=== PATIENT | male | born 1955 | race Caucasian/White ===

== ENCOUNTER 2020-06-14 15:40 | Emergency (ER) | payer BC, SELFPAY ==
[2020-06-14 15:43] VITALS: BP 149/96; PULSE 70; RESP 16; TEMP 36.6; O2SAT 99
--- NOTE | 2020-06-14 15:53 | ED.GENADUL_ITS ---
Discharge Plan Disposition Patient Disposition: HOME Condition: Improving Discharge Details Clinical Impression: Laceration of finger of left hand Primary Care Provider: Ray Will ED Provider: Shubham Oro Home Meds and New Rx's Prescriptions: No Action No Known Home Meds RF: 0 Discharge Instructions Instructions: Laceration (ED) Additional Instructions: Return or see Dr. Aguilar for removal of sutures in 7 to 10 days time. Keep wound clean and dry. May wash daily, pat dry and replace dressing. Return sooner if you develop a fever, foul-smelling discharge from the wound, or any other acute concerns. Medical Decision Making 64-year-old male who accidentally cut the volar distal pad of his left ring finger with a vinyl knife while working. No other injury Distal sensation is intact and motor is unaffected. Tetanus updated. Digital block performed, wound liberally irrigated and explored in a bloodless field without evidence of foreign body. Repaired with interrupted suture. Dressed at the bedside. Patient stable for discharge. HPI General Mode of arrival: ambulatory . Date/Time Provider Initiated Documentation: 06/14/20 15:40 . Limitations to Documentation: no limitations . Information obtained by: patient . History of Present Illness 64 year old M presents to the emergency department with the chief complaint of Left ring finger laceration, described as mild, Quality is described as dull, and is localized to the left. Patient reports no radiation. Patient started experiencing this minute(s) and it has been constant. No relieving factors improve symptom(s), No exacerbating factors reported . Patient did receive the following treatments prior to arrival, none Related Data Home Medications Medication Instructions Recorded Confirmed Unknown [No Known Home Meds] 06/14/20 06/14/20 Allergies Allergy/AdvReac Type Severity Reaction Status Date / Time No Known Allergies Allergy Unverified 06/14/20 15:47 General Stated Complaint: Laceration ZACHARY: 4 Review of Systems Narrative: Tetanus out of date [facility] Social History Smoking/Tobacco Use Status: Never Alcohol Intake: current Alcohol Intake frequency: 0-2 drinks per day Alcohol type: beer and wine Substance use type: does not use Exam Narrative Exam Narrative: GEN: awake, alert, oriented 3. Pleasant, well groomed, interactive. HEAD: Normocephalic, atraumatic EYES: PERRL, EOMI NECK: Full ROM, no TORITO, no menigismus CHEST/RESP: No respiratory distress EXT: Full ROM, left ring finger with shallow laceration over volar pad, curvilinear, measures 1.5 cm. Neuro: Grossly normal neurologic exam, conversant, interactive. Psych: Speech fluent, thoughts congruent, affect normal Course Vital Signs Vital signs: Vital Signs Temperature 36.6 C 06/14/20 15:43 Pulse 70 06/14/20 15:43 Respiratory Rate 16 06/14/20 15:43 Blood Pressure 149/96 H 06/14/20 15:43 Pulse Oximetry 99 06/14/20 15:43 Temperature 36.6 C 06/14/20 15:43 Temperature Source Skin 06/14/20 15:43 Pulse 70 06/14/20 15:43 Respiratory Rate 16 06/14/20 15:43 Respiratory Effort Non-Labored 06/14/20 15:43 Blood Pressure 149/96 H 06/14/20 15:43 Blood Pressure Position Sitting 06/14/20 15:43 Pulse Oximetry 99 06/14/20 15:43 Oxygen Delivery Method Room Air 06/14/20 15:43 Oxygen Flow Rate 0 06/14/20 15:43 Pain Level 1 06/14/20 15:43 Procedures Laceration Laceration 1: Site: hand Side (If applicable): left Size (cm): 1.5 Description: flap Depth: simple, single layer Local Anesthetic: Lidocaine 1% Amount of anesthesia used (mL): 2 Pre-repair: wound explored and irrigated extensively Skin layer closed with: nylon Size (cm): 4-0 Technique: simple, interrupted
[2020-06-14] MEDS: Tetanus & Diphtheria Tox,ADULT 0.5 ML VIAL IM (16:15)
== END 2020-06-14 16:34 | disposition home or self-care (01) ==
PROVIDERS: Emergency Provider Emergency Medicine; PCP Internal Medicine
DX: S61.215A Laceration without foreign body of left ring finger without damage to nail, initial encounter (principal); W26.0XXA Contact with knife, initial encounter; Y99.0 Civilian activity done for income or pay
CPT/HCPCS: 12001; 90471

== ENCOUNTER 2020-11-03 10:32 | Outpatient (REF) | payer BC, SELFPAY ==
[2020-11-03 15:26] LABS: Abs Immature Grans 0.02 10^3/uL (0.0-0.06); Absolute Basophil Count 0.05 10^3/uL (0.0-0.2); Absolute Eosinophil Count 0.22 10^3/uL (0.0-0.7); Absolute Lymphocyte Count 1.48 10^3/uL (1.2-3.4); Absolute Monocyte Count 0.48 10^3/uL (0.1-0.8); Absolute Neutrophil Count 2.92 10^3/uL (1.2-6.7); Eosinophils % 4.3; HCT 49.4 % (40.0-50.0); HGB 16.3 g/dL (13.5-17.5); Immature Grans % 0.4; Lymphocytes % 28.6; MCH 32.2 pg (27.0-33.0); MCV 97.6 fL (80-95); MPV 10.3 fL (8.0-11.0); Monocytes % 9.3; Neutrophils % 56.4; Nucleated RBC 0 %; Platelet Count 158 10^3/uL (130-400); RBC 5.06 10^6/uL (4.36-5.78); RDW-SD 43.5 fL; WBC 5.17 10^3/uL (4.4-10.8)
[2020-11-03 15:59] LABS: ALT 30 U/L (16-63); AST 22 U/L (15-37); Albumin 4.1 g/dL (3.4-5.0); Alkaline Phosphatase 38 U/L (46-116); Anion Gap 8.9 mmol/L (3-11); BUN 15 mg/dL (7-18); Bilirubin, Total 0.9 mg/dL (0.2-1.0); CO2 28.1 mmol/L (21.0-32.0); Calcium 9.6 mg/dL (8.5-10.1); Calculated LDL 113 mg/dL (<100); Chloride 102 mmol/L (98-107); Cholesterol 240 mg/dL (<200); Glucose 105 mg/dL (74-106); HDL Cholesterol 118 mg/dL (40-60); Potassium 4.2 mmol/L (3.5-5.1); Sodium 139 mmol/L (136-145); Total Protein 7.2 g/dL (6.4-8.2); Triglyceride 47 mg/dL (<150)
== END 2020-11-03 10:33 | disposition home or self-care (01) ==
LOC: NCHCN 10:32
PROVIDERS: PCP Internal Medicine; Visit Provider Physician Assistant
DX: Z00.00 Encounter for general adult medical examination without abnormal findings (principal); L57.0 Actinic keratosis; M47.26 Other spondylosis with radiculopathy, lumbar region; Z13.220 Encounter for screening for lipoid disorders
CPT/HCPCS: 80053; 80061; 85025

== ENCOUNTER 2020-12-05 20:47 | Outpatient (REF) | payer BC, SELFPAY ==
[2020-12-07 13:15] LABS: COVID-19 RT-PCR UVMMC Result Negative (Negative)
== END 2020-12-05 20:48 | disposition home or self-care (01) ==
LOC: NCHCN 20:47
PROVIDERS: PCP Internal Medicine; Visit Provider Physician Assistant
DX: Z20.822 Contact with and (suspected) exposure to COVID-19 (principal)
CPT/HCPCS: U0003

== ENCOUNTER 2021-08-07 13:28 | Outpatient (REF) | payer BC, SELFPAY ==
[2021-08-09 10:18] LABS: COVID-19 RT-PCR UVMMC Result Negative (Negative)
== END 2021-08-07 13:29 | disposition home or self-care (01) ==
LOC: NCHCN 13:28
PROVIDERS: PCP Internal Medicine; Visit Provider Physician Assistant
DX: Z20.822 Contact with and (suspected) exposure to COVID-19 (principal)
CPT/HCPCS: U0003

== ENCOUNTER 2023-07-07 11:22 | Outpatient (REF) | payer BC, SELFPAY ==
[2023-07-07 19:21] LABS: HCT 44.4 % (40.0-50.0); HGB 14.9 g/dL (13.5-17.5); MCH 32.5 pg (27.0-33.0); MCHC 33.6 % (32.0-36.0); MCV 97 fL (80-95); MPV 10.9 fL (8.0-11.0); Platelet Count 139 10^3/uL (130-400); RBC 4.58 10^6/uL (4.36-5.78); RDW 11.9 % (11.8-14.1); RDW-SD 42.9 fL; WBC 4.58 10^3/uL (4.4-10.8)
[2023-07-07 19:35] LABS: ALT 37 U/L (16-63); AST 30 U/L (15-37); Albumin 3.8 g/dL (3.4-5.0); Alkaline Phosphatase 43 U/L (46-116); Anion Gap 8.1 mmol/L (3-11); BUN 16 mg/dL (7-18); Bilirubin, Total 0.6 mg/dL (0.2-1.0); CO2 27.9 mmol/L (21.0-32.0); CREATININE 0.9 mg/dL (0.70-1.30); Calcium 9.6 mg/dL (8.5-10.1); Calculated LDL 95 mg/dL (<100); Chloride 103 mmol/L (98-107); Cholesterol 221 mg/dL (<200); Estimated GFR 94.19 (mL/min/1.73m2); Glucose 118 mg/dL (74-106); HDL Cholesterol 120 mg/dL (40-60); Potassium 4.3 mmol/L (3.5-5.1); Sodium 139 mmol/L (136-145); Total Protein 7.3 g/dL (6.4-8.2); Triglyceride 31 mg/dL (<150)
[2023-07-08 17:45] LABS: PSA, Screening 3.1 ng/mL (<=4.5)
[2023-07-09 14:30] LABS: Hemoglobin A1C 5.3 % (<5.7)
== END 2023-07-07 11:23 | disposition home or self-care (01) ==
LOC: NCHCN 11:22
PROVIDERS: PCP Internal Medicine; Visit Provider Physician Assistant
DX: E78.5 Hyperlipidemia, unspecified (principal); R35.1 Nocturia; Z00.00 Encounter for general adult medical examination without abnormal findings; Z12.5 Encounter for screening for malignant neoplasm of prostate
CPT/HCPCS: 80053; 80061; 84153; 85027; 83036

== ENCOUNTER 2024-07-28 12:37 | Outpatient (REF) | payer MEDICARE, SELFPAY ==
--- OUTSIDE RECORDS SUMMARY | 2024-07-28 12:40 | XMS_ITS | Encounter Summary ---
Author Organization [facility] Address [address] [facility] [place] [address] Care Team Providers Care Drafter Structural Name Role Phone Eliane Quintanilla Primary Care Provider [phone] Encounter Details Date Type Department Care Team (Late st Contact Info) Description 09/18/2023 Telephone Dermatology at [address] [address] Harriet Joe LPN Social History Tobacco Use Types Packs/Day Years Used Date Smoking Tobacco: Former Smokeless Tobacco: Never Sex and Gender Information Value Date Recorded Sex Assigned at Not on file Gender Identity Not on file Sexual Orientation Not on file documented as of this encounter Miscellaneous Notes * Telephone Encounter - Harriet Joe LPN - 09/18/2023 2:38 PM EST 09/05/23 A-right lateral elbow skin shave biopsy ED&C B-Right calf skin shave biopsy ED&C C-Left thigh skin shave biopsy ED&C Bx: A-BCCa B-SCCa C-Wart No further treatment necessary for A, B, or C. Return to clinic as needed Reviewed biopsy results and Dr. Kendall recommendations with patient. He voiced understanding. documented in this encounter Plan of Treatment Not on file documented as of this encounter Visit Diagnoses Not on filedocumented in this encounter Care Teams Drafter Structural Relationship Specialty Start Date End Date Eliane Quintanilla PA [address] [place] [address] PCP - General Family Medicine 09/21/20 documented as of this encounter
--- OUTSIDE RECORDS SUMMARY | 2024-07-28 12:40 | XMS_ITS | Encounter Summary ---
Author Organization [facility] Address [address] [place] [address] Care Team Providers Care Budget Manager Name Role Phone Unknown, Provider Primary Care Provider Hafsa ilалександр Encounter Details Date Type Department Care Team (Late st Contact Info) Description 03/13/2021 Lab Requisition [facility] Pathology & Laboratory Medicine - [address] [address] Outr Resulting Lab, Provider Social History Tobacco Use Types Packs/Day Years Used Date Smoking Tobacco: Never Assessed Sex and Gender Information Value Date Recorded Sex Assigned at Not on file Gender Identity Not on file Sexual Orientation Not on file documented as of this encounter Plan of Treatment Not on file documented as of this encounter Procedures Procedure Name Priority Date/Time Associated Diagnosis Comments LYME AB Routine 03/13/2021 14:40 EDT documented in this encounter Results * LYME AB (03/13/2021 14:40 EDT) Lyme Ab Negative Negative 03/15/2021 10:15 EDT [facility] Comment:New 3rd generation a ssay in use 03/01/2020 Blood VENOUS BLOOD / Unknown 03/13/2021 14:40 EDT 03/14/2021 21:13 EDT Provider Outr Resulting Lab IMMUNOLOGY A ND SEROLOGY ORDERABLES [facility] [address] [place] [address] documented in this encounter Visit Diagnoses Not on filedocumented in this encounter Care Teams Budget Manager Relationship Specialty Start Date End Date Unknown, Provider, PCP - General 02/05/11 documented as of this encounter
--- OUTSIDE RECORDS SUMMARY | 2024-07-28 12:40 | XMS_ITS | Encounter Summary ---
Author Organization [facility] Address [facility] [place] [address] Care Team Providers Care Lab Manager Name Role Phone Eliane Quintanilla Primary Care Provider Reason for Visit * Reason Comments Back Pain pain with numbnessin spine and pain downback of RT leg * Consultation (Routine) - Closed Specialty Diagnoses / Procedures Referred By Contac t Referred To Contact [facility] Diagnoses Other spondylosis with radiculopathy, lumbar region Spondylolisthesis, site unspecified Low back pain Spine- Lumbar radiuclopathy/ XR & MRI 09/13/20 @ [facility] Eliane Quintanilla PA [address] [place] [address] [facility] [place] [address] Referral ID Status Reason Start Date Expiration Date V isits Requested Visits Authorized [id number] Closed Consult, Test & Treat Connection Center PCP Updated and/or Approved 09/19/2020 09/19/2021 6 6 Encounter Details Date Type Department Care Team (Latest Contact Info) Description 10/11/2020 8:00 AM EST Office Visit [facility] [place] [address] Rashawn Ferro MD [facility] [place] [address] Spondylolisthesis at L5-S1 level; Spinal stenosis at L4-L5 level Social History Tobacco Use Types Packs/Day Years Used Date Smoking Tobacco: Former Smokeless Tobacco: Never Sex and Gender Information Value Date Recorded Sex Assigned at Not on file Gender Identity Not on file Sexual Orientation Not on file documented as of this encounter Last Filed Vital Signs Vital Sign Reading Time Taken Comments Blood Pressure 144/86 10/10/2020 11:19 AM EST Pulse 64 10/10/2020 11:19 AM EST Temperature 37.1 ??C (98.8 ??F) 10/10/2020 11:[address] Respiratory Rate - - Oxygen Saturation 100% 10/10/2020 11:19 AM EST Inhaled Oxygen Concentration - - Weight 86.2 kg (190 lb) 10/10/2020 11:19 AM EST Height 194.3 cm (6' 4.5) 10/10/2020 11:19 AM ES T Body Mass Index 22.83 10/10/2020 11:19 AM EST documented in this encounter Progress Notes * Haley Ulloa LNA - 10/11/2020 8:00 AM EST Confirmed with pt that a detailed line by line medication and allergy review was performed by Haley Ulloa as documented on as part of the telephone Intake process. Confirmed with pt that there have been no medication/allergy additions or changes over the previous 1 days. * Rashawn Ferro MD - 10/11/2020 8:00 AM EST Images from the original note were not included. Rashawn Ferro MD MS FAOA Department of Orthopaedics [facility] October 11, 2020 Mr. Arriaza is an otherwise healthy active 64-year-old gentleman seen today in the spine center in consultation from JUSTIN Osuna. This gentleman seen primarily for lumbosacral pain and on occasion right posterior thigh pain which does not go below the knee. The back pain is the primary problem. 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 Symptoms have been present for about a year. Generally they are not a progressive but more intermittent. He takes anti-inflammatory medications for arthritis in his hands and left knee and at times this is helpful for his back. They tend to be exacerbated with forward flexion and bending motions. He has no distal pain, numbness, tingling, or weakness. Symptoms tend to responded with squatting and rising again from a squatted position. Night pain generally is not a problem. Review of systems is negative for GI, , constitutional symptoms. He reports being otherwise healthy. Body mass index is 22.83 with a height of 6 feet 5 inches, weight of 190 pounds. He does not smoke. This is a very pleasant healthy-appearing physically fit gentleman. In the short distance his gait is normal. He can toe and heel walk without weakness. On inspection from the back he has a level pelvis and straight spine all of which is normal in appearance and is completely nontender to palpationincluding his sciatic notches. He does have a palpable step-off at the lumbosacral junction which just above the foot. His distal motor exam is completely normal. His sensory function is intact to light touch. His reflexes are 2 at the knees absent at the ankles. Straight leg raise test is negative. Calf musculature is soft and nontender bilaterally. Hip motion is pain-free and full. Imaging includes plain x-rays of the lumbar spine from 06/30/2020. This demonstrates a grade 2 to grade 3 isthmic lytic spondylolisthesis of L5 on S1. This appears to be autofused anteriorly. He also has significant disc degeneration at the L2-L3 level. Lumbar MRI is reviewed from 09/13/2020 confirming all the above. Areas of compression include the exiting right L4 nerve root due to facet hypertrophy at the L4-L5 level above his autofused spondylolisthesis at L5-S1. He also has significant facet arthropathy at this level. I see no other areas of significant nerve root compression. Impression: Intermittently symptomatic low back pain at the lumbosacral junction and occasionally with pain in the right posterior thigh without distal radiation. Although he has a significant spondylolisthesis at L5-S1 this appears to appears to be autofused and is not likely to be contributed to his symptoms as a result. Nerve roots at this level appear to be noncompressed. The adjacent segmentat L4-L5 appears degenerative with compression of the exiting L4 nerve root particularly on the right which would be consistent but not diagnostic of his posterior thigh pain. Recommendation: Reviewed these findings including all the imaging studies with the patient in detail. Is not entirely clear which segment of the spine may be the major contributor to his presenting symptoms but in any event they appear to be intermittent and well-tolerated at this point in time. Ifsymptoms worsen particular with regards to his leg pain or if suggest that he pay particular attention to any distal symptoms of pain, numbness, tingling, weakness to help identify which may be the contributing nerve. Also suggested continued use of anti-inflammatory medications and appropriate alterations of his mechanical activities which he knows aggravate his symptoms. If they worsen, would consider oral steroids, epidural steroid injections and potentially operative intervention if the segments of his spine from a radicular point of view can be better identified. The current MRI is notable for motion artifact so any further investigation may require repeating his MRI. All this was reviewed with him in detail. His questions were answered. Will check on an as-needed basis. Draker voice recognition was used for this dictation and I apologize for any mis-wording. [facility] Response Trends Patient-reported scores: myD-H Spine Questionnaire responses 10/11/2020 Oswestry Disability Index (Range: 0-100) 8 (Minimal disability) PROMIS-10 Physical Health Score 54.1 PROMIS-10 Mental Health Score 43.5 Rashawn Ferro MD MS FAOA Professor of Orthopaedic Surgery [facility] ([facility]) Department of Orthopaedic Surgery [place] [phone] [email or web address] documented in this encounter Plan of Treatment Not on file documented as of this encounter Visit Diagnoses Diagnosis Spondylolisthesis at L5-S1 level Congenital spondylolisthesis Spinal stenosis at L4-L5 level documented in this encounter Care Teams Lab Manager Relationship Specialty Start Date End Date Eliane Quintanilla PA [address] [place] [id number] PCP - General Family Medicine 09/21/20 documented as of this encounter
--- OUTSIDE RECORDS SUMMARY | 2024-07-28 12:40 | XMS_ITS | Encounter Summary ---
Author Organization [facility] Address [facility] [place] [address] Care Team Providers Care Cement Sack Breaker Name Role Phone Unavailable Primary Care Provider Unavailabl e Encounter Details Date Type Department Care Team (Late st Contact Info) Description 10/30/2017 Telephone Dermatology at [address] [place] [address] Harriet Joe LPN Social History Tobacco Use Types Packs/Day Years Used Date Smoking Tobacco: Former Smokeless Tobacco: Never Sex and Gender Information Value Date Recorded Sex Assigned at Not on file Gender Identity Not on file Sexual Orientation Not on file documented as of this encounter Miscellaneous Notes * Telephone Encounter - Harriet Joe LPN - 11/03/2017 8:27 AM EST Return call from Patient. Nurse reviewed biopsy results with patient. He voiced understanding. * Telephone Encounter - Harriet Joe LPN - 10/31/2017 3:41 PM EST 2nd message left * Telephone Encounter - Harriet Joe LPN - 10/30/2017 2:31 PM EST Nurse attempted to contact patient to review biopsy results 10/24/17 shave left distal volar arm; SCCA, no further treatment necessary, return to clinic 05/14/18 for repeat check. Message left. documented in this encounter Plan of Treatment Not on file documented as of this encounter Visit Diagnoses Not on filedocumented in this encounter
--- OUTSIDE RECORDS SUMMARY | 2024-07-28 12:40 | XMS_ITS | Clinical Summary ---
Author Organization [facility] Address [address] [place] [address] Care Team Providers Care Buoy Tender Name Role Phone Unknown, Provider MD Primary Care Provider Unava ilable Social History Tobacco Use Types Packs/Day Years Used Date Smoking Tobacco: Never Assessed Sex and Gender Information Value Date Recorded Sex Assigned at Not on file Gender Identity Not on file Sexual Orientation Not on file Plan of Treatment Health Maintenance Due Date Last Done Comments Hepatitis C Screen 1955 RSV Immunization ( o r 60+ Years) (1 - 1-dose 60+ series) 2016 Fall Risk Screening 2021 COVID-19 Vaccine (2022-24 season) 2023 Care Teams Buoy Tender Relationship Specialty Start Date End Date Unknown, Provider, PCP - General 02/05/11
--- OUTSIDE RECORDS SUMMARY | 2024-07-28 12:40 | XMS_ITS | Continuity of Care Document ---
Author Organization [facility] Address [address] [place] [address] Care Team Providers Care Wedding Makeup Artist Name Role Phone Ray Devine Primary Care Physician Encounter [id number] Date(s): 07/08/23 - 07/08/[address] [address] Discharge Disposition: Home or Self Care Attending Physician: Eliane Quintanilla PA-C Admitting Physician: Eliane Quintanilla PA-C Referring Physician: Eliane Quintanilla PA-C Immunizations Given and Recorded Vaccine Date Status Refusal Reason SARS-CoV-2 (COVID-19) mRNA-1273 vaccine 01/22/21 R ecorded SARS-CoV-2 (COVID-19) mRNA-1273 vaccine 12/26/20 R ecorded Social History Social History Type Response Sex Male Patient Care team information Care Team Personnel Name: Ray Devine MD Position: No Access Member Role: Primary Care Physician Address: Address: [facility] [address] [place] [address]- [place]
--- OUTSIDE RECORDS SUMMARY | 2024-07-28 12:40 | XMS_ITS | Encounter Summary ---
Author Organization [facility] [place] [address] Care Team Providers Care Brush Stainer Name Role Phone Ray Will MD Primary Care Provider [phone] Encounter Details Date Type Department Care Team (Late st Contact Info) Description 06/30/2020 Ancillary Procedure Radiology Library at [facility] [place] [address] Eliane Quintanilla PA [address] [place] [address] Social History Tobacco Use Types Packs/Day Years Used Date Smoking Tobacco: Former Smokeless Tobacco: Never Sex and Gender Information Value Date Recorded Sex Assigned at Not on file Gender Identity Not on file Sexual Orientation Not on file documented as of this encounter Plan of Treatment Not on file documented as of this encounter Procedures Procedure Name Priority Date/Time Associated Diagnosis Comments FILM LIBRARY STORAGE ONLY DX SPINE Routine 06/30/2020 12:00 AM EDT documented in this encounter Results * Film Library- Storage Only DX Spine (06/30/2020 12:00 AM EDT) Narrative [facility] - 10/04/2020 3:58 PM EST This exam is auto-finalizing. It's purpose is for storage only. Eliane ANDERSON IMG FILM LIBRARY ORD ERABLES [facility] [place], [place] documented in this encounter Visit Diagnoses Not on filedocumented in this encounter Care Teams Brush Stainer Relationship Specialty Start Date End Date Ray Will MD [address] [address] PCP - General General Internal Medicine 04/14/18 documented as of this encounter
--- OUTSIDE RECORDS SUMMARY | 2024-07-28 12:40 | XMS_ITS | Encounter Summary ---
Author Organization [facility] Address [address] [place] [address] Care Team Providers Care Manager Marketing Communications Name Role Phone Unknown, Provider Primary Care Provider Hafsa ilable Encounter Details Date Type Department Care Team (Late st Contact Info) Description 12/06/2020 Lab Requisition [facility] Pathology & Laboratory Medicine - [facility] [address] [place] [address] Outr Resulting Lab, Provider Social History Tobacco [...] Procedure Name Priority Date/Time Associated Diagnosis Comments ZZCOVID-19 TEST [facility] PCR Today 12/05/2020 9:00 EDT COVID-19 TESTING Routine 12/05/2020 9:00 EDT documented in this encounter Results * COVID-[facility] (12/05/2020 9:00 EDT) Swab ENTIRE NASOPHARYNX / Unknown 12/05/2020 9:00 EDT 12/06/2020 15:47 EDT Provider Outr Resulting Lab MICROBIOLOGY - GENERAL ORDERABLES [facility] [address] [place] [address] * COVID-19 TESTING (12/05/2020 9:00 EDT) COVID-19 rt-PCR Result Negative Negative 12/07/2020 13:10 EDT [facility] Comment: This test has not been FDA cleared or approved. This test has been authorized by FDA under an EUA for use by authorized laboratories. This test has been authorized only for detection of nucleic acid from 2019-nCoV, not for any other viruses or pathogens. This test is only authorized for the duration of the declaration that circumstances exist justifying the authorization of emergency use of in vitro diagnostic tests for detection and/or diagnosis of 2019-nCoV under section 564(b)(1) of Act, 21 U.S.C ?? 360bbb-3(b) (1), unless the authorization is terminated or revoked sooner. Negative results do not preclude 2019-nCoV infection and should not be used as the sole basis for treatment or other patient management decisions. Negative results must be combined with clinical observations, patient history, and epidemiological information. This test was developed and its performance characteristics determined by [facility]. It has not been cleared or approved by the US Food and Drug Administration. FDA does not require this test to go through premarket FDA review. This test is used for clinical purposes. It should not be regarded as investigational or for research. This laboratory is certified under the Clinical Laboratory Improvement Amendments (CLIA) as qualified to perform high complexity clinical laboratory testing. This test is based on the CDC COVID-19 Emergency Use Authorization (EUA) assay, with minor modification as defined by the FDA Performed on the [employer] 7 Flex RT-PCR System. Performing Lab [facility] 12/07/2020 13:10 EDT [facility] Swab 12/05/2020 9:00 EDT 12/06/2020 15:47 EDT Provider Outr Resulting Lab MICROBIOLOGY - GENERAL ORDERABLES [facility] [address] [place] [address] documented in this encounter Visit Diagnoses Not on filedocumented in this encounter Care Teams Manager Marketing Communications Relationship Specialty Start Date End Date Unknown, Provider, PCP - General 02/05/11 documented as of this encounter
--- OUTSIDE RECORDS SUMMARY | 2024-07-28 12:40 | XMS_ITS | Encounter Summary ---
Author Organization [facility] Address [address] [place] [address] Care Team Providers Care Mail Superintendent Name Role Phone Unknown, Provider Primary Care Provider Phyliciava ilable Encounter Details Date Type Department Care Team (Late st Contact Info) Description 02/04/2011 Results Only [facility] Laboratory Services - [facility] ([facility]) [address], [place] [id number] Vic Will MD [address] [place], [place] [id number] Social History Tobacco Use Types Packs/Day Years Used Date Smoking Tobacco: Never Assessed Sex and Gender Information Value Date Recorded Sex Assigned at Not on file Gender Identity Not on file Sexual Orientation Not on file documented as of this encounter Plan of Treatment Not on file documented as of this encounter Procedures Procedure Name Priority Date/Time Associated Diagnosis Comments CYTOPATHOLOGY Routine 02/04/2011 0:00 EDT documented in this encounter Results * CYTOPATHOLOGY (02/04/2011 0:00 EDT) Pathology Report: CYTOPATHOLOGY REPORT ? Reports generated via electronic interface contain original data; ? however they are lacking the format of the original report. ? Caution should be taken when reading/interpreti ng unformatted reports. ? Name: ? MEMO LEONARD ? Accession #: ? [id number] ? : ? 1955 (Age: 55) ??M ?Collect Date: ? 02/04/2011 ? Location: ? [facility] ? Receive Date: ? 02/05/2011 ? Provider: ? VIC WILL MD ? Copy to: ? CYTOLOGIC DIAGNOSIS: ? Urine, voided, cytologic evaluation: ? 1. ?No malignant cells identified. ? 2. ? Background of abundant red blood cells and scattered crystals. ? Document reviewed and electronically signed by: ? VINITA L CIOLINO MD ? Report Date: ??02/05/2011 18:59 ? By the signature above, the attending physician certifies that he/she has ? personally conducted a gross and/or microscopic examination of the described ? specimens and rendered or confirmed the above diagnosis. ? Specimen Type: ? Urine, Voided ? Clinical History: ? Flank pain, weight loss, and microhematuria ? Gross Description: ? One vial of CytoLyt was received and processed by selective cellular ? enhancement technique. ? End of Report ? [facility] 02/04/2011 02/05/2011 7:2 8 EDT Vic Will MD PATHOLOGY ORDERABLES Performing Organization Address City/State/[facility] Co de Phone Number [facility] [address] [place] [address] documented in this encounter Visit Diagnoses Not on filedocumented in this encounter Care Teams Mail Superintendent Relationship Specialty Start Date End Date Unknown, Provider, PCP - General 02/05/11 documented as of this encounter
--- OUTSIDE RECORDS SUMMARY | 2024-07-28 12:40 | XMS_ITS | Encounter Summary ---
Author Organization [facility] Address [facility] [place] [address] Care Team Providers Care Office Machine Embossograph Operator Name Role Phone Eliane Quintanilla Primary Care Provider Encounter Details Date Type Department Care Team (Late st Contact Info) Description 09/05/2023 Refill Dermatology at [address] [phone] Akosua Cloud, RN Social History Tobacco Use Types Packs/Day Years [...] on filedocumented in this encounter Care Teams Office Machine Embossograph Operator Relationship Specialty Start Date End Date Eliane Quintanilla PA [address] [place] [address] PCP - General Family Medicine 09/21/20 documented as of this encounter
--- OUTSIDE RECORDS SUMMARY | 2024-07-28 12:40 | XMS_ITS | Encounter Summary ---
Author Organization [facility] Address [address] [place] [address] Care Team Providers Care Architectural Drafter Name Role Phone Unknown, Provider Primary Care Provider Unava ilable Encounter Details Date Type Department Care Team (Late st Contact Info) Description 08/08/2021 Lab Requisition [facility] Pathology & [place] [address] Outr Resulting Lab, Provider Social History Tobacco [...] Priority Date/Time Associated Diagnosis Comments ZZCOVID-19 TEST [facility] PCR Today 08/07/2021 9:30 EST COVID-19 TESTING Routine 08/07/2021 9:30 EST documented in this encounter Results * COVID-19 TEST [facility] PCR (08/07/2021 9:30 EST) Swab 08/07/2021 9:30 EST 08/08/2021 16:48 EST Provider Outr Resulting Lab MICROBIOLOGY - GENERAL ORDERABLES [facility] [address] [place] [address] * COVID-19 TESTING (08/07/2021 9:30 EST) COVID-19 rt-PCR Result Negative Negative 08/09/2021 10:09 EST [facility] Comment: This test has [...] clinical observations, patient history, and epidemiological information. Testing was performed using the shaylee SARS-CoV-2 assay ([employer] on the Shaylee 6800 System Performing Lab Shaylee [address] [facility] Lab 08/09/2021 10:09 EST [facility] Swab 08/07/2021 9:30 EST 08/08/2021 16:48 EST Provider Outr Resulting Lab MICROBIOLOGY - GENERAL ORDERABLES [facility] [address] [place] [address] documented in this encounter Visit Diagnoses Not on filedocumented in this encounter Care Teams Architectural Drafter Relationship Specialty Start Date End Date Unknown, Provider, PCP - General 02/05/11 documented as of this encounter
--- OUTSIDE RECORDS SUMMARY | 2024-07-28 12:40 | XMS_ITS | Encounter Summary ---
Author Organization [facility] Address [address] [place] [address] Care Team Providers Care Roller Embosser Name Role Phone Unknown, Provider Primary Care Provider Unamaninder ilable Encounter Details Date Type Department Care Team (Late st Contact Info) Description 07/08/2023 Lab Requisition [facility] Pathology & Laboratory Medicine - [facility] [address] [place] [address] Outr Resulting Lab, Provider Social History Tobacco [...] Procedure Name Priority Date/Time Associated Diagnosis Comments PSA TOTAL, DIAGNOSTIC Routine 07/07/2023 8:15 EDT documented in this encounter Results * PSA TOTAL, DIAGNOSTIC (07/07/2023 8:15 EDT) PSA 3.1 <=4.5 ng/mL 07/08/2023 17:40 EDT [facility] Blood VENOUS BLOOD / Unknown 07/07/2023 8:15 EDT 07/08/2023 16:51 EDT Narrative [facility] - 07/08/2023 17:40 EDT NOTE: Serum PSA concentration should not be interpreted as absolute evidence for the presence or absence of malignant disease. Assayed on Siemens ADVIA Centaur XPT using chemiluminescent technology.??Values obtained by using different assay methods cannot be used interchangeably. Provider Outr Resulting Lab CHEMISTRY & BLOOD GAS ORDERABLES [facility] [address] [place] [address] documented in this encounter Visit Diagnoses Not on filedocumented in this encounter Care Teams Roller Embosser Relationship Specialty Start Date End Date Unknown, Provider, PCP - General 02/05/11 documented as of this encounter
--- OUTSIDE RECORDS SUMMARY | 2024-07-28 12:40 | XMS_ITS | Encounter Summary ---
Author Organization [facility] Address One [facility] [place] [address] Care Team Providers Care Yard Loader Operator Name Role Phone Unavailable Primary Care Provider Unavailabl e Reason for Visit * Reason Comments Skin Check Encounter Details Date Type Department Care Team (Late st Contact Info) Description 10/24/2017 9:30 AM EST Office Visit Dermatology at [address] [place] [address] Addy Zapata MD [address] [place] [address], [facility] [place] [address] [place] (actinic keratosis); History of SCC (squamous cell carcinoma) of skin Social History Tobacco Use Types Packs/Day Years Used Date Smoking Tobacco: Former Smokeless Tobacco: Never Sex and Gender Information Value Date Recorded Sex Assigned at Not on file Gender Identity Not on file Sexual Orientation Not on file documented as of this encounter Progress Notes * Addy Zapata MD - 10/24/2017 9:30 AM EST Problem: Skin lesions of concern Brendan is a 61-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 He is referred today by Kishor Singh who has since retired regarding a growing lesion of the left distal forearm. Physical examination reveals a pleasant 61-year-old gentleman who has an actinic keratosis somewhathyperkeratotic in the mid central thinning parietal scalp and small actinic on the left nasal tip. He is a 3 cm erythematous patch plaque on the distal left volar arm can certainly concerning for possible superficial BCC versus superficial SCCA. 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 After curettage the site measured 3 cm in diameter 3. Wound care instructions given 4. Recommend he see me in 6 months for repeat check. Actinic keratoses scalp and nasal tip 1 LN 2 x 2 slide to each of 2 sites 2. Return to clinic in 6 months. documented in this encounter Plan of Treatment Not on file documented as of this encounter Visit Diagnoses Diagnosis AK (actinic keratosis) Actinic keratosis History of SCC (squamous cell carcinoma) of skin Personal history of other malignant neoplasm of skin documented in this encounter
--- OUTSIDE RECORDS SUMMARY | 2024-07-28 12:40 | XMS_ITS | Referral Summary ---
Author Organization [facility] Address [address] [place] [address] Care Team Providers Care Hydroelectric Plant Technician Name Role Phone Unknown, Provider Primary Care Provider Unava ilable Social History Tobacco Use Types Packs/Day Years Used Date Smoking Tobacco: Never Assessed Sex and Gender Information Value Date Recorded Sex Assigned at Not on file Gender Identity Not on file Sexual Orientation Not on file Plan of Treatment Not on file Care Teams Hydroelectric Plant Technician Relationship Specialty Start Date End Date Unknown, Provider, PCP - General 02/05/11
--- OUTSIDE RECORDS SUMMARY | 2024-07-28 12:40 | XMS_ITS | Encounter Summary ---
Author Organization [facility] Address [address] [facility] [place] [address] Care Team Providers Care Marketing Operations Analyst Name Role Phone Eliane Quintanilla Primary Care Provider Reason for Visit * Reason Comments Skin Check * Consultation (Routine) - Closed Specialty Diagnoses / Procedures Referred By Contlarisa t Referred To Contact Dermatology Diagnoses Neoplasm of uncertain behavior of skin Personal history of other malignant neoplasm of skin Eliane Quintanilla PA [address] [place] [address] Addy Zapata MD [address] [place] [address], [facility] [place] [address] Referral ID Status Reason Start Date Expiration Date Visits Re quested Visits Authorized [id number] Closed 07/07/2023 07/06/2024 1 1 Encounter Details Date Type Department Care Team (Late st Contact Info) Description 09/05/2023 10:30 AM EST Office Visit Dermatology at [address] [address] Addy Zapata MD [address] [place] [address], [facility] [place] [address] History of SCC (squamous cell carcinoma) of skin; AK (actinic keratosis) Social History Tobacco Use Types Packs/Day Years Used Date Smoking Tobacco: Former Smokeless Tobacco: Never Sex and Gender Information Value Date Recorded Sex Assigned at Not on file Gender Identity Not on file Sexual Orientation Not on file documented as of this encounter Progress Notes * Addy Zapata MD - 09/05/2023 10:30 AM EST Problem: 1. Repeat skin checkup 2. History of SCCA left distal volar arm, October 2017 3. History of extensive sun exposure over the years 4. 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 I last saw him in 2017. Physical examination reveals a pleasant 67-year-old gentleman who has 3 red scaling 1.3 cm diameterpatches present 1 on the right lateral forearm, site A, 1 on his right calf, site B, and 1 on his left's thigh, site C. 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 He has mild diffuse actinic damage on the scalp and several hyperkeratotic actinic's present within the thinning parietal scalp. Otherwise careful examination of the head and the neck the chest theback the hands and forearms thighs and calves is otherwise benign. The SCCA treatment site on the left distal volar arm is well-healed Assessment plan: Actinic keratosis, hyperkeratotic, scalp 1. LN 2 x 2 applied each of 4 sites 2. Recommend the patient begin 5 fluorouracil 5% cream apply to top of scalp twice daily for 1 weekon 3 weeks off starting after [place]. Repeat for a total of three cycles. Dispense 40 g with 0 refills. 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 After obtaining informed consent sites were anesthetized and shave C&D performed at each of the 3 sites. 2. After curettage sites are all measured 1.3 cm in diameter 3. Wound care instructions and supplies given 4. Return to clinic as needed for new lesion/concerns. CC: JUSTIN Osuna documented in this encounter Plan of Treatment Not on file documented as of this encounter Visit Diagnoses Diagnosis History of SCC (squamous cell carcinoma) of skin Personal history of other malignant neoplasm of skin AK (actinic keratosis) Actinic keratosis documented in this encounter Care Teams Marketing Operations Analyst Relationship Specialty Start Date End Date Eliane Quintanilla PA [address] [address] PCP - General Family Medicine 09/21/20 documented as of this encounter
--- OUTSIDE RECORDS SUMMARY | 2024-07-28 12:40 | XMS_ITS | Encounter Summary ---
Author Organization [facility] Address [facility] [place] [address] Care Team Providers Care Business Support Manager Name Role Phone Eliane Quintanilla Primary Care Provider [phone] Encounter Details Date Type Department Care Team (Latest Contact Info) Description 09/05/2023 10:04 PM EST - 09/05/2023 11:59 PM EST Hospital [place] [id number] Discharge Disposition: Home Social History Tobacco Use Types Packs/Day Years Used Date Smoking Tobacco: Former Smokeless Tobacco: Never Sex and Gender Information Value Date Recorded Sex Assigned at Not on file Gender Identity Not on file Sexual Orientation Not on file documented as of this encounter Medications at Time of Discharge Medication Sig Dispensed Refills Start Date End Date ibuprofen (AdviL) 200 mg Tablet Take 600 mg by mouth every morning. fluorouraciL (EFUDEX) 5 % Cream Apply thin layer topically to top of scalp twice daily for 1 week on and 3 weeks off for a total of 3 cycles. 40 g 09/05/2023 10/21/2023 documented as of this encounter Plan of Treatment Not on file documented as of this encounter Procedures Procedure Name Priority Date/Time Associated Diagnosis Comments SURGICAL PATHOLOGY REPORT Routine 09/05/2023 11:10 AM EST documented in this encounter Results * (ABNORMAL) Surgical Pathology Report (09/05/2023 11:10 AM EST) Final Diagnosis [id number] ? Location: [facility] The signing pathologist has (i) examined the relevant preparation(s) for the specimen(s) and (ii) rendered or confirmed the diagnosis(es). . 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 Derm[address]i st, Bone & Soft Tissue Pathologist Performed at: ??-[facility] Dept. of [place]ology, [place] [address] Case Finisher: Charito Smith MD, AP, ??CLIA Certificate: [id number] DISCUSSION THIS RESULT REQUIRES PHYSICIAN/A.P.P. FOLLOW UP SPECIMEN(S) SUBMITTED A - R lateral elbow, ED&C B - R calf, ED&C C - L thigh, ED&C CLINICAL INFORMATION Erythematous patches. ??SCCA/BCCA. ??Treated with shave C and D SPECIMEN PROCESSING A - Labeled/Fixative : A, formalin. Quantity/Size: ??Single, one point1.6 x 1.3 x 0.1 cm. Tissue Description: Irregular shave of granular, partly crusted mottled rodriguez-andrew skin. Sections/Process ing: Inked, serially sectioned and entirely submitted in 2 cassettes as follows: ?A1: ??Tips ?A2: ??Body B - Labeled/Fixative : B, formalin. Quantity/Size: ??Single, 1 x 0.8 x 0.1 cm. Tissue Description: Irregular shave of finely granular, rodriguez-andrew skin. Sections/Process ing: Inked, quadrisected and entirely submitted in 1 cassette labeled B1. C - Labeled/Fixative : C, formalin. Quantity/Size: ??Single, 0.8 x 0.7 x 0.1 cm. Tissue Description: Slightly domed shave of finely granular andrew-white skin. Sections/Process ing: Inked, trisected and entirely submitted in 1 cassette labeled C1. ??pps(A) 09/17/2023 9:24 AM EST [facility] SPECIMEN FROM SKIN / Unknown 09/05/2023 11:10 AM EST 09/05/2023 11:10 AM EST SPECIMEN FROM SKIN / Unknown 09/05/2023 11:10 AM EST 09/05/2023 11:10 AM EST SPECIMEN FROM SKIN / Unknown 09/05/2023 11:10 AM EST 09/05/2023 11:10 AM EST Addy Zapata MD PATHOLOGY/CYTOLOGY O RDERABLES [facility] [place] [id number] [facility] [place] [address] documented in this encounter Visit Diagnoses Not on filedocumented in this encounter Care Teams Business Support Manager Relationship Specialty Start Date End Date Eliane Quintanilla PA [address] [place] [id number] PCP - General Family Medicine 09/21/20 documented as of this encounter
--- OUTSIDE RECORDS SUMMARY | 2024-07-28 12:40 | XMS_ITS | Encounter Summary ---
Author Organization [facility] Address [facility] [place] [address] Care Team Providers Care Assembler Clip On Sunglasses Name Role Phone Ray Will MD Primary Care Provider Reason for Visit * Reason Comments Follow-up Skin Check * Consultation (Routine) - Specialty Diagnoses / Procedures Referred By Contlarisa t Referred To Contact Dermatology Diagnoses Disorder of the skin and subcutaneous tissue, unspecified Ray Will MD [address] [place] [address] [facility] Dermatology [address] [place] [phone] Referral ID Status Reason Start Date Expiration Date V isits Requested Visits Authorized [id number] Consult, Test & Treat PCP Updated and/or Approved 08/10/2018 02/07/2019 6 6 Encounter Details Date Type Department Care Team (Late st Contact Info) Description 08/21/2018 9:30 AM EST Office Visit Dermatology at [address] [address] Addy Zapata MD [address] [place] [address], [facility] [place], [place] [id number] [place] (actinic keratosis); History of SCC (squamous cell carcinoma) of skin Social History Tobacco Use Types Packs/Day Years Used Date Smoking Tobacco: Former Smokeless Tobacco: Never Sex and Gender Information Value Date Recorded Sex Assigned at Not on file Gender Identity Not on file Sexual Orientation Not on file documented as of this encounter Progress Notes * Addy Zapata MD - 08/21/2018 9:30 AM EST Problem: 1. Repeat skin checkup 2. History of SCCA left distal volar arm, October 2017 Brendan follows up for repeat check. Has been doing well. He has not noted any new lesions of concernfollowing his last visit. 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 Physical examination reveals a pleasant 62-year-old gentleman who has a well- healed C&D scar onthe left distal dorsal forearm at site of his SCCA. He has no evidence of recurrence. He has a benign examination of the head and the neck of the chest the back the hands the arms of forearms. He hasa single actinic on the distal dorsal forearm near his wrist. Otherwise he has a benign examination today. He has 2 seborrheic keratoses which are brown to black on his right upper back near the right shoulder, and 2 smaller 8 mm seborrheic keratoses on the mid central back Assessment plan: History of SCCA left distal volar arm October 2017 1. No evidence of recurrence. 2. Patient reassured 3. Return to clinic here as needed for new lesion/concerns Actinic keratosis left distal dorsal forearm 1. LN 2 x 2 applied to single site Cc: Ray Will MD documented in this encounter Plan of Treatment Not on file documented as of this encounter Visit Diagnoses Diagnosis AK (actinic keratosis) Actinic keratosis History of SCC (squamous cell carcinoma) of skin Personal history of other malignant neoplasm of skin documented in this encounter Care Teams Assembler Clip On Sunglasses Relationship Specialty Start Date End Date Ray Will MD [address] [place] [id number] PCP - General General Internal Medicine 04/14/18 documented as of this encounter
--- OUTSIDE RECORDS SUMMARY | 2024-07-28 12:40 | XMS_ITS | Encounter Summary ---
Author Organization [facility] [place] [address] Care Team Providers Care Back Wedger Name Role Phone Ray Will MD Primary Care Provider [phone] Encounter Details Date Type Department Care Team (Late st Contact Info) Description 09/13/2020 Ancillary Procedure Radiology Library at [facility] [place] [phone] Eliane Quintanilla PA [address] [place] [phone] Social History Tobacco Use Types Packs/Day Years [...] Associated Diagnosis Comments FILM LIBRARY STORAGE ONLY MR SPINE Routine 09/13/2020 12:00 AM EST documented in this encounter Results * Film Library- Storage Only MR Spine (09/13/2020 12:00 AM EST) Narrative [facility] - 10/04/2020 4:00 PM EST This exam is auto-finalizing. It's purpose is for storage only. Eliane ANDERSON IMG FILM LIBRARY ORD ERABLES [facility] [place], [place] documented in this encounter Visit Diagnoses Not on filedocumented in this encounter Care Teams Back Wedger Relationship Specialty Start Date End Date Ray Will MD [address] [place] [id number] PCP - General General Internal Medicine 04/14/18 documented as of this encounter
--- OUTSIDE RECORDS SUMMARY | 2024-07-28 12:40 | XMS_ITS | Encounter Summary ---
Author Organization [facility] [place] [address] Care Team Providers Care Fur Designer Name Role Phone Eliane Quintanilla Primary Care Provider Encounter Details Date Type Department Care Team (Latest Contact Info) Description 09/05/2023 Travel Social History Tobacco Use Types Packs/Day Years [...] on filedocumented in this encounter Care Teams Fur Designer Relationship Specialty Start Date End Date Eliane Quintanilla PA [address] [place] [address] PCP - General Family Medicine 09/21/20 documented as of this encounter
--- OUTSIDE RECORDS SUMMARY | 2024-07-28 12:40 | XMS_ITS | Encounter Summary ---
Author Organization [facility] Address [facility] [place] [address] Care Team Providers Care Recruiting Administrator Name Role Phone Eliane Quintanilla Primary Care Provider Encounter Details Date Type Department Care Team (Late st Contact Info) Description 10/21/2023 Refill Dermatology at [address] [address] Harriet Joe, ORACLE DATABASE DEVELOPER Social History Tobacco Use Types Packs/Day Years [...] on filedocumented in this encounter Care Teams Recruiting Administrator Relationship Specialty Start Date End Date Eliane Quintanilla PA [address] [place] [address] PCP - General Family Medicine 09/21/20 documented as of this encounter
--- OUTSIDE RECORDS SUMMARY | 2024-07-28 12:40 | XMS_ITS | Clinical Summary ---
Author Organization [facility] Address [place] [address] Care Team Providers Care Drying Machine Operator Package Yarns Name Role Phone Eliane Quintanilla Primary Care Provider Allergies No known active allergies Medications Medication Sig Dispensed Refills Start Date End Date Status ibuprofen (AdviL) 200 mg Tablet Take 600 mg by mouth every morning. Active fluorouraciL (EFUDEX) 5 % Cream Apply thin layer topically to top of scalp twice daily for 1 week on and 3 weeks off for a total of 3 cycles. 40 g 10/22/2023 Active Active Problems Problem Noted Date Diagnosed Date Spondylolisthesis at L5-S1 level 10/11/2020 Overview (10/11/2020): autofused anteriorly Spinal stenosis at L4-L5 level 10/11/2020 Overview (10/11/2020): Right neuroforamen with facet hypertrophy AK (actinic keratosis) 10/24/2017 History of SCC (squamous cell carcinoma) of skin 10/24/2017 Social History Tobacco Use Types Packs/Day Years Used Date Smoking Tobacco: Former Smokeless Tobacco: Never Sex and Gender Information Value Date Recorded Sex Assigned at Not on file Gender Identity Not on file Sexual Orientation Not on file Last Filed Vital Signs Vital Sign Reading [...] Mass Index 22.83 10/10/2020 11:19 AM EST Plan of Treatment Health Maintenance Due Date Last Done Comments CT Colonography 1956 Colonoscopy 1956 Colorectal Cancer Screening 1956 FIT DNA 1956 FIT 1956 Sigmoidoscopy (10 year) with FIT yearly 1956 Sigmoidoscopy 1956 Hepatitis C Screening 1974 Lipid Screening 1974 Tetanus/Diphtheria/Pertussis Vaccines (1 - Tdap) 1975 Zoster vaccine (1 of 2) 2006 Advance Directive 2011 AAA Screen 2021 Pneumoccocal Vaccine: 65+ (1 of 1 - PCV) 2021 Covid-19 Vaccine (3 - season) 05/23/202411/2020, 12/26/2020 Influenza (Flu) vaccine (1 o f 1 - Influenza standard series) 05/23/2024 Care Teams Drying Machine Operator Package Yarns Relationship Specialty Start Date End Date Eliane Quintanilla PA [address] [place] [address] PCP - General Family Medicine 09/21/20
--- OUTSIDE RECORDS SUMMARY | 2024-07-28 12:40 | XMS_ITS | Encounter Summary ---
Author Organization [facility] [place] [address] Care Team Providers Care Director Telehealth Name Role Phone Eliane Quintanilla Primary Care Provider [phone] Encounter Details Date Type Department Care Team (Late st Contact Info) Description 10/22/2023 Refill Dermatology at [address] [phone] Harriet Joe LPN Social History Tobacco Use Types Packs/Day Years Used Date Smoking Tobacco: Former Smokeless Tobacco: Never Sex and Gender Information Value Date Recorded Sex Assigned at Not on file Gender Identity Not on file Sexual Orientation Not on file documented as of this encounter Miscellaneous Notes * Telephone Encounter - Harriet Joe LPN - 10/22/2023 11:35 AM EST 09/05/23 Dr. Zapata recommended patient begin 5-FU cream apply to top of scalp twice daily for 1 week on 3 weeks off. Ordered 40 g Patient requesting a refill. He doesn't have enough to to the last cycle. Approved by Dr. Zapata to refill. Pt request send to [place], [place] documented in this encounter Plan of Treatment Not on file documented as of this encounter Visit Diagnoses Not on filedocumented in this encounter Care Teams Director Telehealth Relationship Specialty Start Date End Date Eliane Quintanilla PA [address] [place] [address] PCP - General Family Medicine 09/21/20 documented as of this encounter
[2024-07-28 20:29] LABS: ALT 31 U/L (16-63); AST 26 U/L (15-37); Albumin 3.9 g/dL (3.4-5.0); Alkaline Phosphatase 40 U/L (46-116); Anion Gap 7.2 mmol/L (3-11); BUN 17 mg/dL (7-18); CO2 29.8 mmol/L (21.0-32.0); CREATININE 0.9 mg/dL (0.70-1.30); Calcium 9.5 mg/dL (8.5-10.1); Calculated LDL 104 mg/dL (<100); Chloride 105 mmol/L (98-107); Cholesterol 232 mg/dL (<200); Estimated GFR 93.61 (mL/min/1.73m2); Glucose 105 mg/dL (74-106); HDL Cholesterol 117 mg/dL (40-60); Potassium 4.3 mmol/L (3.5-5.1); Sodium 142 mmol/L (136-145); Total Protein 7.5 g/dL (6.4-8.2); Triglyceride 56 mg/dL (<150)
[2024-07-29 20:56] LABS: Hepatitis C Ab w Rflx HCV PCR Negative (Negative)
== END 2024-07-28 12:38 | disposition home or self-care (01) ==
LOC: NCHCN 12:37
PROVIDERS: PCP Internal Medicine; Visit Provider Physician Assistant
DX: E78.5 Hyperlipidemia, unspecified (principal)
CPT/HCPCS: 80053; 80061; 86803